=== PATIENT | female | born 1995 | race Caucasian/White ===

== ENCOUNTER 2020-12-24 13:38 | Emergency (ER) | payer OTHER, SELFPAY ==
[2020-12-24 14:00] VITALS: BP 122/74; PULSE 63; RESP 16; TEMP 36.3; O2SAT 100; BMI 38.5
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
[2020-12-24 14:13] VITALS: BP 115/70; PULSE 60; RESP 17; TEMP 36.6
== END 2020-12-24 14:12 | disposition home or self-care (01) ==
PROVIDERS: Emergency Provider Nurse Practitioner; PCP Pediatrics
DX: Z20.822 Contact with and (suspected) exposure to COVID-19 (principal)
CPT/HCPCS: 99202; G0463; U0003

== ENCOUNTER 2024-10-29 16:49 | Emergency (ER) | payer SELFPAY ==
[2024-10-29] VITALS (8 sets, daily range): BP systolic 106–148; BP diastolic 55–78; PULSE 68–83; RESP 16–18; TEMP 36.6–37.1; O2SAT 98–100; BMI 36.5
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
--- NOTE | 2024-10-29 17:14 | PC.NURSE ---
Dr. Moncada said no EKG necessary for patient at this time.
[2024-10-29 17:19] LABS: Basophils % 0.3 % (0.1-2.0); Eosinophils % 0.1 % (0.1-12.0); Hematocrit 39.1 % (37.0-47.0); Hemoglobin 12.7 g/dL (12.2-16.2); Lymphocytes # 2.6 K/mm3 (0.7-4.5); Lymphocytes % 17.3 % (10-50); Mean Corpuscular HGB Conc 32.5 g/dL (31.8-35.4); Mean Corpuscular Hemoglobin 31.1 pg (27.0-31.2); Mean Corpuscular Volume 95.6 fl (81-99); Mean Platelet Volume 11.9 fl (7.4-10.4); Monocytes # 0.7 K/mm3 (0.1-1.0); Monocytes % 4.9 % (1.7-9.3); Neutrophils # 11.4 K/mm3 (1.8-7.8); Platelet Count 211 K/mm3 (142-424); Red Blood Count 4.09 M/mm3 (4.20-5.40); Red Cell Distribution Width 12.5 % (11.5-17.5); White Blood Count 14.8 K/mm3 (4.8-10.8)
[2024-10-29 17:21] LABS: Albumin Level 4.5 g/dl (3.5-5.0); Chloride 106 mmol/L (98-107); Potassium 3.9 mmoL/L (3.5-5.1); Sodium 143 mmol/L (136-145)
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
[2024-10-29 17:24] LABS: Alanine Aminotransferase 24 U/L (12-78); Albumin/Globulin Ratio 1.5 (1.1-1.8); Alkaline Phosphatase 95 U/L (38-126); Anion Gap 14.9 mEq/L (5-15); Aspartate Amino Transferase 28 U/L (14-36); Bilirubin,Total 0.2 mg/dl (0.2-1.3); Blood Urea Nitrogen 10 mg/dl (7-17); Carbon Dioxide 26 mmol/L (22.0-30.0); Creatinine Clearance Estimated 238 mL/min (50-200); Estimated Glomerular Filt Rate 118 ml/min (>60); GFR (African American) 143 ML/MIN (>60); Lipase 114 U/L (23-300); Total Protein,Serum 7.5 g/dl (6.3-8.2)
[2024-10-29 17:25] LABS: Calcium 9.1 mg/dl (8.4-10.2); Glucose 107 mg/dl (74-100)
[2024-10-29 17:27] LABS: Activated Partial Thrombo Time 28.5 seconds (22.8-30.6); INR 0.92 (0.9-1.1); Prothrombin Time 10.4 seconds (10.1-12.5)
[2024-10-29] MEDS: KETOROLAC 30MG/ML VIAL 15 MG IV (17:40)
[2024-10-29 17:41] LABS: HCG,Quantitative < 2 mIU/ml (0-5.42)
[2024-10-29 18:28] LABS: HIV Combo NEGATIVE (Negative)
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
--- NOTE | 2024-10-29 18:43 | PC.NURSE ---
pt is at ct
[2024-10-29] MEDS: SODIUM CHLORIDE 0.9% 10ML SYR (RAD ONLY) 10 ML IV (19:02)
[2024-10-29] MEDS: 0.9 % SODIUM CHLORIDE 50 ML VIAL 100 ML IV (19:02)
[2024-10-29] MEDS: IOPAMIDOL-370 (76%);100ML BOTTLE 180 ML IV (19:02)
[2024-11-01 05:10] LABS: HCV Ab Non Reactive (Non Reactive)
== END 2024-10-29 19:47 | disposition home or self-care (01) ==
PROVIDERS: Emergency Provider Emergency Medicine; PCP Pediatrics
DX: S20.219A Contusion of unspecified front wall of thorax, initial encounter (principal); S89.92XA Unspecified injury of left lower leg, initial encounter; M79.604 Pain in right leg; V89.2XXA Person injured in unspecified motor-vehicle accident, traffic, initial encounter; Y93.89 Activity, other specified; Y92.410 Unspecified street and highway as the place of occurrence of the external cause
CPT/HCPCS: 70450; 71275; 72125; 72128; 72131; 74174; 75635; 80053; 83690; 84702; 85025; 85610; 85730; 86803; 87389; 96374; 99291; J1885; Q9967